=== PATIENT | female | born 1960 | race Caucasian/White ===

== ENCOUNTER → 2017-07-22 | Outpatient (CLI) | payer OTHER | LOC: CFH 10:33 | PROVIDERS: ATTEND Specialist | DX: Z12.31 Encounter for screening mammogram for malignant neoplasm of breast (principal) | CPT/HCPCS: G0202 ==

== ENCOUNTER → 2017-08-15 | Outpatient (CLI) | payer OTHER | END | disposition home or self-care (01) | LOC: RAD 08:20 | PROVIDERS: ATTEND Family Medicine | DX: M51.36 Other intervertebral disc degeneration, lumbar region (principal); M47.896 Other spondylosis, lumbar region; M48.061 Spinal stenosis, lumbar region without neurogenic claudication; M51.26 Other intervertebral disc displacement, lumbar region; M51.27 Other intervertebral disc displacement, lumbosacral region | CPT/HCPCS: 72148 ==

== ENCOUNTER 2017-09-06 12:37 | Inpatient (IN) | payer OTHER ==
[~2017-09-06] VITALS: Ht 160 cm; Wt 69.6 kg
[2017-09-06] MEDS ORDERED: SODIUM CHLORIDE FLUSH 10ML SYR IVF ONE (14:00)
[2017-09-06] MEDS ORDERED: ONDANSETRON 2MG/ML, 2ML IVPush ONE (14:00)
[2017-09-06] MEDS ORDERED: ONDANSETRON 2MG/ML, 2ML ONE (14:11)
[2017-09-06] MEDS ORDERED: HYDROmorphone 2 MG/ML, 1ML ONE ×3 (14:11→16:10)
[2017-09-06] MEDS: HYDROmorphone 2 MG/ML, 1ML IVPush PRN ×2 (14:16→15:18)
[2017-09-06 14:26] LABS: BASOPHILS # (AUTO) 0.01 x10^3/uL (0-0.1); BASOPHILS % (AUTO) 0 % (0-1); EOSINOPHILS # (AUTO) 0.03 x10^3/uL (0-0.4); EOSINOPHILS % (AUTO) 0 % (1-7); LYMPHOCYTES # (AUTO) 1.25 x10^3/uL (1-3.4); LYMPHOCYTES % (AUTO) 12 % (22-44); MD NO; MEAN CORPUSCULAR HEMOGLOBIN 29.3 pg (27.0-34.8); MEAN CORPUSCULAR HGB CONC 33.8 g/dL (32.4-35.8); MEAN CORPUSCULAR VOLUME 86.9 fL (80-100); MEAN PLATELET VOLUME 7.1 fL (7.4-10.4); MONOCYTES # (AUTO) 0.71 x10^3/uL (0.2-0.8); MONOCYTES % (AUTO) 7 % (2-9); NEUTROPHILS # (AUTO) 8.57 x10^3/uL (1.8-6.8); NEUTROPHILS % (AUTO) 81 % (42-75); PLATELET COUNT 718 x10^3/uL (130-400); RED BLOOD COUNT 3.57 x10^6/uL (3.82-5.3)
[2017-09-06 14:35] LABS: INTERNATIONAL NORMALIZED RATIO 1.02 (0.93-1.1); PROTHROMBIN TIME 10.5 Seconds (9.6-11.5)
[2017-09-06 14:43] LABS: ALANINE AMINOTRANSFERASE 14 U/L (12-78); ALBUMIN 2.7 g/dL (3.4-5.0); ANION GAP 7 mmol/L (5-15); CALCIUM 8.7 mg/dL (8.5-10.1); CHLORIDE 105 mmol/L (98-107); CREATININE 0.59 mg/dL (0.55-1.02)
[2017-09-06 14:45] LABS: ALKALINE PHOSPHATASE 93 U/L (45-117); BILIRUBIN,TOTAL 0.3 mg/dL (0.2-1.0); TOTAL PROTEIN 8.2 g/dL (6.4-8.2)
[2017-09-06] MEDS ORDERED: ROSU5TAB PO (14:48)
[2017-09-06 15:16] LABS: HCT (SEDRATE) 30.7 % (34.6-47.8)
[2017-09-06] MEDS ORDERED: LIDOCAINE 2%, 20ML ONE ×2 (15:16→17:14)
[2017-09-06] MEDS ORDERED: MIDAZOLAM 1 MG/ML, 5ML ONE (15:38)
[2017-09-06] MEDS ORDERED: FENTANYL PF 100 MCG/2ML ONE (15:38)
[2017-09-06] MEDS ORDERED: MIDAZOLAM 1 MG/ML, 2ML IVPush ONE (16:00)
[2017-09-06] MEDS ORDERED: FENTANYL PF 100 MCG/2ML IVPush ONE (16:00)
[2017-09-06] MEDS ORDERED: LIDOCAINE 1%, 10ML ONE (16:10)
[2017-09-06] MEDS ORDERED: PHARMACOKINETIC CONSULTATION MC ONE ×2 (16:30→20:00)
[2017-09-06] MEDS ORDERED: CEFTRIAXONE PMX 1GM/50ML 50 ML IV ONE (16:30)
[2017-09-06] MEDS ORDERED: VANCOMYCIN PER PHARMACY MC PRN ×2 (16:30→19:00)
[2017-09-06] MEDS ORDERED: HYDROmorphone 2 MG/ML, 1ML IVPush PRN (16:30)
[2017-09-06] MEDS ORDERED: VANCOMYCIN 1,400 MG in SODIUM CHLORIDE 0.9% 250 ML IV ONE (17:00)
[2017-09-06] MEDS ORDERED: OMNIPAQUE 300 MG/ML, 10ML VIAL ONE (17:10)
[2017-09-06] MEDS ORDERED: FENTANYL PF 100 MCG/2ML IVPush PRN (18:00)
[2017-09-06] MEDS: SODIUM CHLORIDE 0.9% 1,000 ML IV SCH (18:33)
[2017-09-06 19:00] LABS: SYN CELLS COUNTED 2
[2017-09-06] MEDS ORDERED: POLYETHYLENE GLYCOL 17 GM PACKET PO PRN (19:00)
[2017-09-06] MEDS ORDERED: BISACODYL 10 MG SUPP PR PRN (19:00)
[2017-09-06] MEDS ORDERED: PHARMACOKINETIC MONITORING MC PRN (20:00)
[2017-09-06] MEDS: morphine SULFATE 10 MG/ML, 1ML IVPush PRN (21:25)
[2017-09-06] MEDS: ONDANSETRON 2MG/ML, 2ML IVPush PRN (21:25)
[2017-09-06] MEDS ORDERED: DIPHENHYDRAMINE 50 MG/ML, 1ML IVPush PRN (21:30)
[2017-09-06] MEDS: PIPERACILLIN/TAZO/PMX 3.375GM 50 ML IV SCH (22:26)
[2017-09-06] MEDS: ATORVASTATIN 10 MG TABLET PO SCH (22:26)
[2017-09-06] MEDS: HEPARIN 5,000 UNITS/ML, 1ML SQ SCH (22:35)
[2017-09-07 00:34] VITALS: BP 108/61
[2017-09-07] MEDS: morphine SULFATE 10 MG/ML, 1ML IVPush PRN ×2 (02:34→07:21)
[2017-09-07] MEDS: HEPARIN 5,000 UNITS/ML, 1ML SQ SCH ×3 (03:00→18:27)
[2017-09-07] MEDS ORDERED: OMNIPAQUE 350 MG/ML, 100ML BOTTLE ONE (04:11)
[2017-09-07] MEDS: SODIUM CHLORIDE 0.9% 1,000 ML IV SCH ×2 (04:45→17:23)
[2017-09-07] MEDS: PIPERACILLIN/TAZO/PMX 3.375GM 50 ML IV SCH ×4 (04:45→23:46)
[2017-09-07] MEDS: ONDANSETRON 2MG/ML, 2ML IVPush PRN ×2 (04:54→11:05)
[2017-09-07] MEDS: KETOROLAC 30 MG/1 ML IVPush PRN ×4 (04:54→23:47)
[2017-09-07] MEDS ORDERED: ESTR0.5T PO (05:15)
[2017-09-07 05:21] LABS: BASOPHILS # (AUTO) 0.02 x10^3/uL (0-0.1); BASOPHILS % (AUTO) 0 % (0-1); EOSINOPHILS # (AUTO) 0.02 x10^3/uL (0-0.4); EOSINOPHILS % (AUTO) 0 % (1-7); LYMPHOCYTES # (AUTO) 0.94 x10^3/uL (1-3.4); LYMPHOCYTES % (AUTO) 10 % (22-44); MD NO; MEAN CORPUSCULAR HEMOGLOBIN 29.3 pg (27.0-34.8); MEAN CORPUSCULAR HGB CONC 33.6 g/dL (32.4-35.8); MEAN CORPUSCULAR VOLUME 87.2 fL (80-100); MEAN PLATELET VOLUME 6.9 fL (7.4-10.4); MONOCYTES # (AUTO) 0.66 x10^3/uL (0.2-0.8); MONOCYTES % (AUTO) 7 % (2-9); NEUTROPHILS % (AUTO) 82 % (42-75); PLATELET COUNT 513 x10^3/uL (130-400); RED BLOOD COUNT 2.87 x10^6/uL (3.82-5.3); RED CELL DISTRIBUTION WIDTH 14.3 % (9.6-15.2)
[2017-09-07 05:33] LABS: CHLORIDE 108 mmol/L (98-107)
[2017-09-07 05:51] LABS: ALANINE AMINOTRANSFERASE 13 U/L (12-78); ALBUMIN 2.1 g/dL (3.4-5.0); ALKALINE PHOSPHATASE 73 U/L (45-117); ANION GAP 8 mmol/L (5-15); BILIRUBIN,TOTAL 0.5 mg/dL (0.2-1.0); CALCIUM 8.3 mg/dL (8.5-10.1); CREATININE 0.46 mg/dL (0.55-1.02); TOTAL PROTEIN 6.5 g/dL (6.4-8.2)
[2017-09-07] MEDS: VANCOMYCIN 1,400 MG in SODIUM CHLORIDE 0.9% 250 ML IV SCH ×2 (07:21→18:25)
[2017-09-07 08:10] VITALS: BP 103/63
[2017-09-07] MEDS: SENNA/DOCUSATE TABLET PO SCH (09:00)
[2017-09-07] MEDS ORDERED: GADOBUTROL 7.5 MMOL/7.5 ML PFS ONE (10:01)
[2017-09-07 15:15] VITALS: BP 123/72
[2017-09-07 19:15] VITALS: BP 107/63
[2017-09-07] MEDS: ATORVASTATIN 10 MG TABLET PO SCH (21:04)
[2017-09-08 02:02] VITALS: BP 112/68
[2017-09-08] MEDS: HEPARIN 5,000 UNITS/ML, 1ML SQ SCH ×3 (02:41→18:50)
[2017-09-08 05:11] LABS: BASOPHILS # (AUTO) 0.01 x10^3/uL (0-0.1); BASOPHILS % (AUTO) 0 % (0-1); EOSINOPHILS # (AUTO) 0.08 x10^3/uL (0-0.4); EOSINOPHILS % (AUTO) 1 % (1-7); LYMPHOCYTES # (AUTO) 1.33 x10^3/uL (1-3.4); LYMPHOCYTES % (AUTO) 16 % (22-44); MD NO; MEAN CORPUSCULAR HEMOGLOBIN 29.4 pg (27.0-34.8); MEAN CORPUSCULAR HGB CONC 33.3 g/dL (32.4-35.8); MEAN CORPUSCULAR VOLUME 88.3 fL (80-100); MONOCYTES # (AUTO) 0.84 x10^3/uL (0.2-0.8); MONOCYTES % (AUTO) 10 % (2-9); NEUTROPHILS % (AUTO) 74 % (42-75); PLATELET COUNT 483 x10^3/uL (130-400); RED BLOOD COUNT 2.86 x10^6/uL (3.82-5.3); RED CELL DISTRIBUTION WIDTH 14.2 % (9.6-15.2)
[2017-09-08 05:22] LABS: ANION GAP 8 mmol/L (5-15); CHLORIDE 107 mmol/L (98-107)
[2017-09-08] MEDS: SODIUM CHLORIDE 0.9% 1,000 ML IV SCH ×2 (05:23→18:38)
[2017-09-08] MEDS: PIPERACILLIN/TAZO/PMX 3.375GM 50 ML IV SCH ×3 (05:23→19:44)
[2017-09-08 05:27] LABS: ALANINE AMINOTRANSFERASE 10 U/L (12-78); ALKALINE PHOSPHATASE 77 U/L (45-117); BILIRUBIN,TOTAL 0.3 mg/dL (0.2-1.0); CREATININE 0.99 mg/dL (0.55-1.02); TOTAL PROTEIN 6.3 g/dL (6.4-8.2)
[2017-09-08] MEDS: VANCOMYCIN 1,400 MG in SODIUM CHLORIDE 0.9% 250 ML IV SCH ×2 (06:07→21:39)
[2017-09-08] MEDS: KETOROLAC 30 MG/1 ML IVPush PRN ×3 (06:07→18:24)
[2017-09-08] MEDS: SENNA/DOCUSATE TABLET PO SCH (07:40)
[2017-09-08 07:56] VITALS: BP 123/70
[2017-09-08] MEDS: morphine SULFATE 10 MG/ML, 1ML IVPush PRN ×4 (07:56→23:10)
[2017-09-08] MEDS ORDERED: LIDOCAINE 2%, 20ML ONE (13:58)
[2017-09-08 15:45] VITALS: BP 118/70
[2017-09-08 17:00] LABS: HCT (SEDRATE) 25.4 % (34.6-47.8)
[2017-09-08] MEDS: ONDANSETRON 2MG/ML, 2ML IVPush PRN (17:18)
[2017-09-08 17:45] LABS: SEDIMENTATION RATE > 120 mm/hr (0-20)
[2017-09-08] MEDS: ACETAMINOPHEN 325 MG TABLET PO PRN ×2 (18:51→23:10)
[2017-09-08 20:14] VITALS: BP 118/70
[2017-09-08] MEDS: ATORVASTATIN 10 MG TABLET PO SCH (21:39)
[2017-09-09] MEDS: KETOROLAC 30 MG/1 ML IVPush PRN ×4 (00:15→18:14)
[2017-09-09] MEDS: PIPERACILLIN/TAZO/PMX 3.375GM 50 ML IV SCH ×4 (01:59→22:19)
[2017-09-09] MEDS: morphine SULFATE 10 MG/ML, 1ML IVPush PRN ×7 (02:04→22:19)
[2017-09-09 02:37] VITALS: BP 109/60
[2017-09-09] MEDS: HEPARIN 5,000 UNITS/ML, 1ML SQ SCH ×3 (03:00→17:50)
[2017-09-09] MEDS: SODIUM CHLORIDE 0.9% 1,000 ML IV SCH ×2 (04:10→12:20)
[2017-09-09 08:15] VITALS: BP 110/58
[2017-09-09] MEDS: ACETAMINOPHEN 325 MG TABLET PO PRN (08:25)
[2017-09-09] MEDS: SENNA/DOCUSATE TABLET PO SCH (08:25)
[2017-09-09 13:44] VITALS: BP 114/67
[2017-09-09] MEDS: VANCOMYCIN 1,400 MG in SODIUM CHLORIDE 0.9% 250 ML IV SCH (14:47)
[2017-09-09] MEDS ORDERED: FENTANYL PF 100 MCG/2ML ONE (19:04)
[2017-09-09] MEDS ORDERED: MIDAZOLAM 1 MG/ML, 2ML ONE (19:04)
[2017-09-09] MEDS ORDERED: PROPOFOL 10 MG/ML, 20ML ONE (19:05)
[2017-09-09] MEDS ORDERED: OXYcodone 5 MG/5 ML ORAL.SOL UDC PO PRN (20:30)
[2017-09-09] MEDS ORDERED: FENTANYL PF 100 MCG/2ML IV PRN (20:30)
[2017-09-09] MEDS ORDERED: LORazepam 2 MG/ML, 1ML IVPush PRN (20:30)
[2017-09-09] MEDS ORDERED: ONDANSETRON 2MG/ML, 2ML IVPush PRN (20:30)
[2017-09-09] MEDS ORDERED: PROMETHAZINE 25 MG/ML, 1ML IV PRN (20:30)
[2017-09-09] MEDS ORDERED: HYDROmorphone 1 MG/ML, 1ML IV PRN (20:30)
[2017-09-09] MEDS ORDERED: ALBUTEROL/IPRATROPIUM 2.5MG/0.5MG, 3 ML NPPB PRN (20:30)
[2017-09-09] MEDS ORDERED: DIAZEPAM 5 MG/ML, 2ML IVPush PRN (20:30)
[2017-09-09] MEDS ORDERED: MIDAZOLAM 1 MG/ML, 2ML IV PRN (20:30)
[2017-09-09] MEDS ORDERED: METOCLOPRAMIDE 5 MG/ML, 2ML IV PRN (20:30)
[2017-09-09] MEDS ORDERED: hydrALAzine 20 MG/ML, 1ML IV PRN (20:30)
[2017-09-09] MEDS ORDERED: LABETALOL 5MG/ML, 20ML IV PRN (20:30)
[2017-09-09 21:40] VITALS: BP 118/59
[2017-09-09] MEDS: ATORVASTATIN 10 MG TABLET PO SCH (22:39)
[2017-09-10 00:20] VITALS: BP 115/56
[2017-09-10] MEDS: KETOROLAC 30 MG/1 ML IVPush PRN ×4 (01:02→20:42)
[2017-09-10] MEDS: morphine SULFATE 10 MG/ML, 1ML IVPush PRN ×4 (01:12→10:52)
[2017-09-10] MEDS: HEPARIN 5,000 UNITS/ML, 1ML SQ SCH ×3 (02:40→18:33)
[2017-09-10 04:15] VITALS: BP 116/55
[2017-09-10] MEDS: PIPERACILLIN/TAZO/PMX 3.375GM 50 ML IV SCH ×4 (04:20→22:47)
[2017-09-10 07:19] VITALS: BP 121/65
[2017-09-10] MEDS: SENNA/DOCUSATE TABLET PO SCH (07:39)
[2017-09-10] MEDS: VANCOMYCIN 1,400 MG in SODIUM CHLORIDE 0.9% 250 ML IV SCH (09:43)
[2017-09-10] MEDS: HYDROcodone/APAP 5/325 TABLET PO PRN ×2 (13:23→20:12)
[2017-09-10 13:43] VITALS: BP 147/72
[2017-09-10] MEDS: SODIUM CHLORIDE 0.9% 1,000 ML IV SCH (16:10)
[2017-09-10] MEDS: ATORVASTATIN 10 MG TABLET PO SCH (20:42)
[2017-09-10 21:00] VITALS: BP 120/70
[2017-09-11] MEDS: HYDROcodone/APAP 5/325 TABLET PO PRN ×4 (02:36→23:28)
[2017-09-11 02:40] VITALS: BP 122/73
[2017-09-11] MEDS: KETOROLAC 30 MG/1 ML IVPush PRN ×3 (03:01→18:44)
[2017-09-11] MEDS: VANCOMYCIN 1,400 MG in SODIUM CHLORIDE 0.9% 250 ML IV SCH ×2 (03:01→22:00)
[2017-09-11] MEDS: SODIUM CHLORIDE 0.9% 1,000 ML IV SCH ×3 (03:01→20:17)
[2017-09-11] MEDS: PIPERACILLIN/TAZO/PMX 3.375GM 50 ML IV SCH ×4 (04:56→23:28)
[2017-09-11 07:15] VITALS: BP 117/72
[2017-09-11] MEDS: POLYETHYLENE GLYCOL 17 GM PACKET PO SCH (08:09)
[2017-09-11] MEDS: SENNA/DOCUSATE TABLET PO SCH (08:09)
[2017-09-11] MEDS: ONDANSETRON 2MG/ML, 2ML IVPush PRN (08:14)
[2017-09-11] MEDS ORDERED: VANCOMYCIN 1,000 MG ONE (12:04)
[2017-09-11] MEDS ORDERED: TRANEXAMIC ACID 100 MG/ML, 10ML ONE ×2 (12:09)
[2017-09-11] MEDS ORDERED: KETOROLAC 60 MG/2 ML ONE (12:09)
[2017-09-11] MEDS ORDERED: EPINEPHRINE 1 MG/ML, 1ML ONE (12:10)
[2017-09-11] MEDS ORDERED: ROPivacaine/PF 0.2%, 10 ML ONE (12:10)
[2017-09-11] MEDS ORDERED: ROPIvacaine/PF 0.2%, 20 ML ONE (12:10)
[2017-09-11] MEDS ORDERED: MIDAZOLAM 1 MG/ML, 2ML ONE (12:15)
[2017-09-11] MEDS ORDERED: FENTANYL PF 250 MCG/5ML ONE (12:15)
[2017-09-11] MEDS ORDERED: PROPOFOL 10 MG/ML, 20ML ONE (12:16)
[2017-09-11] MEDS ORDERED: ROCURONIUM 10 MG/ML,10ML ONE (12:16)
[2017-09-11] MEDS ORDERED: LIDOCAINE-MPF 2% ,5ML ONE (12:16)
[2017-09-11] MEDS ORDERED: ONDANSETRON 2MG/ML, 2ML ONE (12:29)
[2017-09-11] MEDS ORDERED: CEFAZOLIN 1,000 MG ONE (12:29)
[2017-09-11] MEDS ORDERED: KETAMINE 10 MG/ML, 20ML ONE (12:48)
[2017-09-11] MEDS ORDERED: MEPERIDINE/PF 25MG/0.5ML IVPush PRN (13:00)
[2017-09-11] MEDS ORDERED: DIAZEPAM 5 MG/ML, 2ML IVPush PRN (13:00)
[2017-09-11] MEDS ORDERED: OXYcodone 5 MG/5 ML ORAL.SOL UDC PO PRN (13:00)
[2017-09-11] MEDS ORDERED: ONDANSETRON 2MG/ML, 2ML IVPush PRN (13:00)
[2017-09-11] MEDS ORDERED: HYDROmorphone 1 MG/ML, 1ML IV PRN (13:00)
[2017-09-11] MEDS ORDERED: hydrALAzine 20 MG/ML, 1ML IV PRN (13:00)
[2017-09-11] MEDS ORDERED: LABETALOL 5MG/ML, 20ML IV PRN (13:00)
[2017-09-11] MEDS ORDERED: FENTANYL PF 100 MCG/2ML IV PRN (13:00)
[2017-09-11] MEDS ORDERED: ACETAMINOPHEN 325 MG TABLET PO PRN (13:00)
[2017-09-11] MEDS ORDERED: HYDROmorphone 2 MG/ML, 1ML ONE (13:24)
[2017-09-11] MEDS ORDERED: VANCOMYCIN 1,000 MG IVPB ONE (13:46)
[2017-09-11] MEDS ORDERED: PROMETHAZINE 25 MG/ML, 1ML ONE (14:40)
[2017-09-11] MEDS: PROMETHAZINE 25 MG/ML, 1ML IV PRN ×2 (14:41→15:11)
[2017-09-11] MEDS ORDERED: SCOPOLAMINE PATCH, 1.5MG PATCH.TD72 TD ONE ×2 (14:58→15:00)
[2017-09-11 18:30] VITALS: BP 130/69
[2017-09-11 20:15] VITALS: BP 118/68
[2017-09-11] MEDS: ATORVASTATIN 10 MG TABLET PO SCH (20:16)
[2017-09-11 20:32] LABS: CREATININE 0.68 mg/dL (0.55-1.02); VANCOMYCIN,TROUGH 11.7 mcg/mL (5.0-10.0)
[2017-09-11] MEDS ORDERED: VANCOMYCIN 1,400 MG in SODIUM CHLORIDE 0.9% 250 ML IV SCH (21:30)
[2017-09-11 23:35] VITALS: BP 124/58
[2017-09-12 04:34] VITALS: BP 119/67
[2017-09-12] MEDS: HYDROcodone/APAP 5/325 TABLET PO PRN ×3 (05:08→18:26)
[2017-09-12] MEDS: PIPERACILLIN/TAZO/PMX 3.375GM 50 ML IV SCH ×2 (05:08→12:20)
[2017-09-12 06:00] LABS: ALBUMIN 1.8 g/dL (3.4-5.0); ANION GAP 9 mmol/L (5-15); CALCIUM 7.4 mg/dL (8.5-10.1); CHLORIDE 105 mmol/L (98-107)
[2017-09-12 06:03] LABS: ALANINE AMINOTRANSFERASE 37 U/L (12-78); ALKALINE PHOSPHATASE 116 U/L (45-117); BILIRUBIN,TOTAL 0.6 mg/dL (0.2-1.0); CREATININE 0.68 mg/dL (0.55-1.02); TOTAL PROTEIN 5.7 g/dL (6.4-8.2)
[2017-09-12 06:13] LABS: MEAN CORPUSCULAR HEMOGLOBIN 29.3 pg (27.0-34.8); MEAN CORPUSCULAR HGB CONC 33.8 g/dL (32.4-35.8); MEAN CORPUSCULAR VOLUME 86.7 fL (80-100); MEAN PLATELET VOLUME 7.2 fL (7.4-10.4); PLATELET COUNT 380 x10^3/uL (130-400); RED BLOOD COUNT 2.53 x10^6/uL (3.82-5.3); RED CELL DISTRIBUTION WIDTH 13.9 % (9.6-15.2)
[2017-09-12 06:45] LABS: BASOPHILS # (AUTO) 0.02 x10^3/uL (0-0.1); BASOPHILS % (AUTO) 0 % (0-1); EOSINOPHILS # (AUTO) 0.03 x10^3/uL (0-0.4); EOSINOPHILS % (AUTO) 0 % (1-7); LYMPHOCYTES # (AUTO) 0.42 x10^3/uL (1-3.4); LYMPHOCYTES % (AUTO) 4 % (22-44); MD SCAN; MONOCYTES # (AUTO) 0.77 x10^3/uL (0.2-0.8); MONOCYTES % (AUTO) 7 % (2-9); NEUTROPHILS # (AUTO) 9.67 x10^3/uL (1.8-6.8); NEUTROPHILS % (AUTO) 89 % (42-75)
[2017-09-12 07:31] VITALS: BP 111/67
[2017-09-12] MEDS: POLYETHYLENE GLYCOL 17 GM PACKET PO SCH (07:49)
[2017-09-12] MEDS: SENNA/DOCUSATE TABLET PO SCH (07:49)
[2017-09-12] MEDS: SODIUM CHLORIDE 0.9% 1,000 ML IV SCH ×2 (09:14→20:58)
[2017-09-12] MEDS: VANCOMYCIN 1,400 MG in SODIUM CHLORIDE 0.9% 250 ML IV SCH (10:14)
[2017-09-12] MEDS: ENOXAPARIN 40 MG/0.4 ML SQ SCH (12:00)
[2017-09-12 12:30] VITALS: BP 134/76
[2017-09-12] MEDS: CEFAZOLIN PMX 2GM/50ML 50 ML IVPB SCH (16:15)
[2017-09-12] MEDS: ONDANSETRON 2MG/ML, 2ML IVPush PRN (17:17)
[2017-09-12] MEDS: ATORVASTATIN 10 MG TABLET PO SCH (20:59)
[2017-09-12 21:10] VITALS: BP 117/66
[2017-09-13] VITALS (13 sets, daily range): BP systolic 110–147; BP diastolic 58–81
[2017-09-13] MEDS: CEFAZOLIN PMX 2GM/50ML 50 ML IVPB SCH ×3 (00:19→18:47)
[2017-09-13] MEDS: HYDROcodone/APAP 5/325 TABLET PO PRN ×5 (00:24→22:50)
[2017-09-13 05:51] LABS: ALANINE AMINOTRANSFERASE 36 U/L (12-78); ALBUMIN 1.7 g/dL (3.4-5.0); ANION GAP 7 mmol/L (5-15); CALCIUM 7.6 mg/dL (8.5-10.1); CHLORIDE 106 mmol/L (98-107); CREATININE 0.71 mg/dL (0.55-1.02)
[2017-09-13 05:52] LABS: MEAN CORPUSCULAR HEMOGLOBIN 29.2 pg (27.0-34.8); MEAN CORPUSCULAR HGB CONC 33.2 g/dL (32.4-35.8); MEAN CORPUSCULAR VOLUME 87.9 fL (80-100); MEAN PLATELET VOLUME 7.6 fL (7.4-10.4); PLATELET COUNT 351 x10^3/uL (130-400); RED BLOOD COUNT 2.33 x10^6/uL (3.82-5.3); RED CELL DISTRIBUTION WIDTH 14.1 % (9.6-15.2)
[2017-09-13 05:54] LABS: ALKALINE PHOSPHATASE 98 U/L (45-117); BILIRUBIN,TOTAL 0.5 mg/dL (0.2-1.0); TOTAL PROTEIN 5.4 g/dL (6.4-8.2)
[2017-09-13 06:33] LABS: BASOPHILS # (AUTO) 0.02 x10^3/uL (0-0.1); BASOPHILS % (AUTO) 0 % (0-1); EOSINOPHILS # (AUTO) 0.04 x10^3/uL (0-0.4); EOSINOPHILS % (AUTO) 1 % (1-7); LYMPHOCYTES # (AUTO) 0.62 x10^3/uL (1-3.4); LYMPHOCYTES % (AUTO) 8 % (22-44); MD SCAN; MONOCYTES # (AUTO) 0.75 x10^3/uL (0.2-0.8); MONOCYTES % (AUTO) 10 % (2-9); NEUTROPHILS # (AUTO) 6.22 x10^3/uL (1.8-6.8); NEUTROPHILS % (AUTO) 81 % (42-75)
[2017-09-13] MEDS: SODIUM CHLORIDE 0.9% 1,000 ML IV SCH (06:44)
[2017-09-13] MEDS: POLYETHYLENE GLYCOL 17 GM PACKET PO SCH (08:24)
[2017-09-13] MEDS: SENNA/DOCUSATE TABLET PO SCH (08:25)
[2017-09-13] MEDS: ENOXAPARIN 40 MG/0.4 ML SQ SCH (12:00)
[2017-09-13] MEDS: POTASSIUM CHLORIDE 20 MEQ TAB.ER.PRT PO SCH ×2 (12:56→16:47)
[2017-09-13] MEDS: ATORVASTATIN 10 MG TABLET PO SCH (20:30)
[2017-09-14 02:05] VITALS: BP 125/79
[2017-09-14] MEDS: CEFAZOLIN PMX 2GM/50ML 50 ML IVPB SCH ×3 (03:31→19:45)
[2017-09-14 05:30] LABS: CHLORIDE 106 mmol/L (98-107)
[2017-09-14 05:46] LABS: BASOPHILS # (AUTO) 0.01 x10^3/uL (0-0.1); BASOPHILS % (AUTO) 0 % (0-1); EOSINOPHILS # (AUTO) 0.08 x10^3/uL (0-0.4); EOSINOPHILS % (AUTO) 1 % (1-7); LYMPHOCYTES # (AUTO) 0.88 x10^3/uL (1-3.4); LYMPHOCYTES % (AUTO) 13 % (22-44); MD NO; MEAN CORPUSCULAR HEMOGLOBIN 29.5 pg (27.0-34.8); MEAN CORPUSCULAR HGB CONC 33.6 g/dL (32.4-35.8); MEAN CORPUSCULAR VOLUME 87.7 fL (80-100); MEAN PLATELET VOLUME 7.4 fL (7.4-10.4); MONOCYTES # (AUTO) 1.02 x10^3/uL (0.2-0.8); MONOCYTES % (AUTO) 15 % (2-9); NEUTROPHILS # (AUTO) 5.03 x10^3/uL (1.8-6.8); NEUTROPHILS % (AUTO) 72 % (42-75); PLATELET COUNT 337 x10^3/uL (130-400); RED BLOOD COUNT 2.96 x10^6/uL (3.82-5.3); RED CELL DISTRIBUTION WIDTH 14.7 % (9.6-15.2)
[2017-09-14 05:48] LABS: ALANINE AMINOTRANSFERASE 32 U/L (12-78); ALBUMIN 1.8 g/dL (3.4-5.0); ALKALINE PHOSPHATASE 88 U/L (45-117); ANION GAP 5 mmol/L (5-15); BILIRUBIN,TOTAL 0.4 mg/dL (0.2-1.0); CALCIUM 7.9 mg/dL (8.5-10.1); CREATININE 0.74 mg/dL (0.55-1.02); TOTAL PROTEIN 5.6 g/dL (6.4-8.2)
[2017-09-14 05:52] LABS: SEDIMENTATION RATE 101 mm/hr (0-20)
[2017-09-14] MEDS: HYDROcodone/APAP 5/325 TABLET PO PRN ×3 (06:16→18:41)
[2017-09-14 07:20] VITALS: BP 125/72
[2017-09-14] MEDS: POLYETHYLENE GLYCOL 17 GM PACKET PO SCH (09:57)
[2017-09-14] MEDS: SENNA/DOCUSATE TABLET PO SCH (09:57)
[2017-09-14] MEDS: ENOXAPARIN 40 MG/0.4 ML SQ SCH (12:27)
[2017-09-14 13:07] VITALS: BP 124/70
[2017-09-14 20:33] VITALS: BP 117/73
[2017-09-14] MEDS: ATORVASTATIN 10 MG TABLET PO SCH (20:39)
[2017-09-15] MEDS: HYDROcodone/APAP 5/325 TABLET PO PRN ×3 (02:08→14:59)
[2017-09-15 02:21] VITALS: BP 121/69
[2017-09-15] MEDS: CEFAZOLIN PMX 2GM/50ML 50 ML IVPB SCH ×2 (03:59→12:57)
[2017-09-15 05:57] LABS: BASOPHILS # (AUTO) 0.04 x10^3/uL (0-0.1); BASOPHILS % (AUTO) 1 % (0-1); EOSINOPHILS # (AUTO) 0.06 x10^3/uL (0-0.4); EOSINOPHILS % (AUTO) 1 % (1-7); LYMPHOCYTES # (AUTO) 0.96 x10^3/uL (1-3.4); LYMPHOCYTES % (AUTO) 16 % (22-44); MD NO; MEAN CORPUSCULAR HEMOGLOBIN 29.6 pg (27.0-34.8); MEAN CORPUSCULAR HGB CONC 33.7 g/dL (32.4-35.8); MEAN CORPUSCULAR VOLUME 87.7 fL (80-100); MONOCYTES # (AUTO) 0.64 x10^3/uL (0.2-0.8); MONOCYTES % (AUTO) 11 % (2-9); NEUTROPHILS # (AUTO) 4.44 x10^3/uL (1.8-6.8); NEUTROPHILS % (AUTO) 72 % (42-75); PLATELET COUNT 352 x10^3/uL (130-400); RED BLOOD COUNT 3.02 x10^6/uL (3.82-5.3); RED CELL DISTRIBUTION WIDTH 14.9 % (9.6-15.2)
[2017-09-15 07:11] VITALS: BP 113/70
[2017-09-15] MEDS: POLYETHYLENE GLYCOL 17 GM PACKET PO SCH (10:01)
[2017-09-15] MEDS: SENNA/DOCUSATE TABLET PO SCH (10:01)
[2017-09-15 10:17] LABS: % IRON SATURATION 4 % (20-55); IRON LEVEL 7 mcg/dL (50-170); TOTAL IRON BINDING CAPACITY 163 mcg/dL (250-450)
[2017-09-15] MEDS: ENOXAPARIN 40 MG/0.4 ML SQ SCH (12:57)
[2017-09-15 13:39] LABS: OCCULT BLOOD NEGATIVE (NEGATIVE)
[2017-09-15 13:49] VITALS: BP 123/77
[2017-09-15] MEDS ORDERED: LACT1CAP24 PO (16:43)
[2017-09-15] MEDS ORDERED: POLY17PO5 PO (16:43)
[2017-09-15] MEDS ORDERED: KETO10TA PO (16:43)
[2017-09-15] MEDS ORDERED: CEFA2SYR4 IV (16:50)
[2017-09-15] MEDS ORDERED: MEROPENEM 1 GM in SODIUM CHLORIDE 0.9% 100 ML IV ONE (18:00)
== END 2017-09-15 20:20 | disposition home or self-care (01) | DRG 853 ==
LOC: ED 17:42 → EDIP 17:47 → ED 17:52 → 4NOR 18:55
PROVIDERS: ADMIT Family Medicine; ATTEND Family Medicine
PROC: 0S9B3ZZ Drainage of Left Hip Joint, Percutaneous Approach (ICD-10-PCS; 2017-09-09)
PROC: 0SUE09Z Supplement Left Hip Joint, Acetabular Surface with Liner, Open Approach (ICD-10-PCS; 2017-09-11)
PROC: 0QB70ZZ Excision of Left Upper Femur, Open Approach (ICD-10-PCS; 2017-09-11)
PROC: 0SUS09Z Supplement Left Hip Joint, Femoral Surface with Liner, Open Approach (ICD-10-PCS; 2017-09-11)
PROC: 0SH Lower Joints, Insertion (ICD-10-PCS; 2017-09-11)
PROC: 30233N1 Transfusion of Nonautologous Red Blood Cells into Peripheral Vein, Percutaneous Approach (ICD-10-PCS; principal; 2017-09-13)
PROC: 02HV33Z Insertion of Infusion Device into Superior Vena Cava, Percutaneous Approach (ICD-10-PCS; 2017-09-14)
PROC: B5181ZA Fluoroscopy of Superior Vena Cava using Low Osmolar Contrast, Guidance (ICD-10-PCS; 2017-09-14)
PROC: B548ZZA Ultrasonography of Superior Vena Cava, Guidance (ICD-10-PCS; 2017-09-14)
DX: A41.9 Sepsis, unspecified organism (principal); E43 Unspecified severe protein-calorie malnutrition; K68.12 Psoas muscle abscess; M00.052 Staphylococcal arthritis, left hip; M86.9 Osteomyelitis, unspecified; D62 Acute posthemorrhagic anemia; D64.9 Anemia, unspecified; E78.5 Hyperlipidemia, unspecified; B95.61 Methicillin susceptible Staphylococcus aureus infection as the cause of diseases classified elsewhere; E78.00 Pure hypercholesterolemia, unspecified; R26.2 Difficulty in walking, not elsewhere classified; R74.0 Nonspecific elevation of levels of transaminase and lactic acid dehydrogenase [LDH]; D47.3 Essential (hemorrhagic) thrombocythemia; M25.452 Effusion, left hip; Z53.29 Procedure and treatment not carried out because of patient's decision for other reasons; J45.909 Unspecified asthma, uncomplicated; E87.6 Hypokalemia; Z87.01 Personal history of pneumonia (recurrent); Z82.61 Family history of arthritis; Z87.442 Personal history of urinary calculi; Z90.710 Acquired absence of both cervix and uterus; Z99.3 Dependence on wheelchair; Z90.89 Acquired absence of other organs; Z72.89 Other problems related to lifestyle; Z86.11 Personal history of tuberculosis; Z88.3 Allergy status to other anti-infective agents; Z68.27 Body mass index [BMI] 27.0-27.9, adult; Z88.8 Allergy status to other drugs, medicaments and biological substances
CPT/HCPCS: 20611; 36415; 36569; 71010; 72170; 72193; 76000; 76937; 77001; 77002; 80053; 80202; 82272; 82565; 82945; 83540; 83550; 83605; 83615; 83735; 84100; 84145; 84157; 84520; 84560; 85025; 85610; 85651; 85730; 85810; 86140; 86480; 86703; 86803; 86850; 86900; 86923; 87040; 87070; 87075; 87077; 87176; 87186; 87205; 87899; 88300; 89050; 89060; 93005; 96374; 96375; 96376; A9585; C1713; J0171; J0690; J1170; J1644; J1650; J1885; J2185; J2250; J2405; J2543; J2550; J2704; J2795; J3010; J3370; J3490; Q9967; C1751; C1776; G0435; J2270; J7030; J7050; P9016

== ENCOUNTER → 2017-11-04 | Outpatient (CLI) | payer OTHER ==
[~2017-11-04] MED LIST: ASPI-496 PO; CEFA2SYR4 IV; CHOL10003 PO; CYAN25009 PO; ESTR0.5T PO; KETO10TA PO; LACT1CAP24 PO; LACT1CAP37 PO; LYSI500T3 PO; MULT-224 PO; POLY17PO5 PO; ROSU5TAB PO
[2017-11-04 13:58] LABS: MICROSCOPIC INDICATED
[2017-11-04 14:02] LABS: BASOPHILS # (AUTO) 0.03 x10^3/uL (0-0.1); BASOPHILS % (AUTO) 1 % (0-1); EOSINOPHILS # (AUTO) 0.08 x10^3/uL (0-0.4); EOSINOPHILS % (AUTO) 2 % (1-7); LYMPHOCYTES # (AUTO) 1.02 x10^3/uL (1-3.4); LYMPHOCYTES % (AUTO) 18 % (22-44); MD NO; MEAN CORPUSCULAR HEMOGLOBIN 29.5 pg (27.0-34.8); MEAN CORPUSCULAR HGB CONC 33.1 g/dL (32.4-35.8); MEAN PLATELET VOLUME 9.1 fL (7.4-10.4); MONOCYTES # (AUTO) 0.45 x10^3/uL (0.2-0.8); MONOCYTES % (AUTO) 8 % (2-9); NEUTROPHILS # (AUTO) 4.03 x10^3/uL (1.8-6.8); NEUTROPHILS % (AUTO) 72 % (42-75); PLATELET COUNT 225 x10^3/uL (130-400); RED CELL DISTRIBUTION WIDTH 15.6 % (9.6-15.2)
[2017-11-04 14:07] LABS: ALBUMIN 4.1 g/dL (3.4-5.0); ANION GAP 7 mmol/L (5-15); CALCIUM 8.7 mg/dL (8.5-10.1); CHLORIDE 106 mmol/L (98-107)
[2017-11-04 14:12] LABS: ALANINE AMINOTRANSFERASE 14 U/L (12-78); ALKALINE PHOSPHATASE 66 U/L (45-117); BILIRUBIN,TOTAL 0.4 mg/dL (0.2-1.0); CREATININE 0.83 mg/dL (0.55-1.02); TOTAL PROTEIN 7.6 g/dL (6.4-8.2)
[2017-11-04 14:30] LABS: CULTURE INDICATED? NO
== END ==
LOC: STAR 12:42
PROVIDERS: ATTEND Orthopaedic Surgery
DX: Z01.818 Encounter for other preprocedural examination (principal); M00.052 Staphylococcal arthritis, left hip; M25.552 Pain in left hip
CPT/HCPCS: 36415; 80053; 81001; 85025; 87081; 93005

== ENCOUNTER 2017-11-13 07:20 | Inpatient (IN) | payer OTHER ==
[~2017-11-13] VITALS: Ht 160 cm; Wt 71.0 kg
[2017-11-13] MEDS ORDERED: SCOPOLAMINE PATCH, 1.5MG PATCH.TD72 TD ONE ×2 (07:33→08:30)
[2017-11-13] MEDS ORDERED: VANCOMYCIN PER PHARMACY MC ONE ×2 (07:33→14:00)
[2017-11-13] MEDS ORDERED: LACTATED RINGERS 1,000 ML IV SCH (07:33)
[2017-11-13] MEDS ORDERED: GABAPENTIN 300 MG CAPSULE PO ONE (07:35)
[2017-11-13] MEDS ORDERED: OxyconTIN ER 10 MG TAB.ER PO ONE (07:35)
[2017-11-13] MEDS ORDERED: FENTANYL PF 250 MCG/5ML ONE (07:42)
[2017-11-13] MEDS ORDERED: MIDAZOLAM 1 MG/ML, 2ML ONE (07:42)
[2017-11-13] MEDS ORDERED: PROPOFOL 10 MG/ML, 20ML ONE (07:44)
[2017-11-13] MEDS ORDERED: SUCCINYLCHOLINE 20 MG/ML, 10ML ONE (07:44)
[2017-11-13] MEDS ORDERED: DEXAMETHASONE 4 MG/ML, 1ML ONE (07:44)
[2017-11-13] MEDS ORDERED: ONDANSETRON 2MG/ML, 2ML ONE (07:44)
[2017-11-13] MEDS ORDERED: CEFAZOLIN 1,000 MG ONE (07:44)
[2017-11-13] MEDS ORDERED: LIDOCAINE-MPF 2% ,5ML ONE (07:44)
[2017-11-13] MEDS ORDERED: LIDOCAINE GEL 2%, 5ML ONE (07:44)
[2017-11-13] MEDS ORDERED: VANCOMYCIN PER PHARMACY MC STA (07:49)
[2017-11-13 07:51] VITALS: BP 133/85
[2017-11-13] MEDS ORDERED: ACETAMINOPHEN 500 MG TABLET PO ONE (08:00)
[2017-11-13] MEDS ORDERED: METOCLOPRAMIDE 10MG TABLET PO PRN (08:00)
[2017-11-13] MEDS ORDERED: VANCOMYCIN PMX 1GM/200ML 200 ML IV ONE (08:00)
[2017-11-13] MEDS ORDERED: ROPIvacaine/PF 0.2%, 20 ML ONE (08:18)
[2017-11-13] MEDS ORDERED: KETOROLAC 60 MG/2 ML ONE (08:18)
[2017-11-13] MEDS ORDERED: TRANEXAMIC ACID 100 MG/ML, 10ML ONE ×2 (08:18)
[2017-11-13] MEDS ORDERED: SODIUM CHLORIDE 0.9% 100 ML ONE (08:19)
[2017-11-13] MEDS ORDERED: EPINEPHRINE 1 MG/ML, 1ML ONE (08:19)
[2017-11-13] MEDS ORDERED: VANCOMYCIN 1,000 MG ONE ×2 (08:19→11:59)
[2017-11-13] MEDS ORDERED: ROCURONIUM 10 MG/ML,10ML ONE (08:27)
[2017-11-13] MEDS ORDERED: HYDROcodone/APAP 5/325 TABLET PO PRN (08:30)
[2017-11-13] MEDS ORDERED: ZOLPIDEM 5MG TABLET PO PRN (08:30)
[2017-11-13] MEDS ORDERED: CEFAZOLIN PMX 2GM/50ML 50 ML IVPB SCH (08:30)
[2017-11-13] MEDS ORDERED: DIPHENHYDRAMINE 25 MG CAPSULE PO PRN (08:30)
[2017-11-13] MEDS ORDERED: MAGNESIUM HYDROXIDE 8%, 30ML UDC PO PRN (08:30)
[2017-11-13] MEDS ORDERED: SENNA/DOCUSATE TABLET PO PRN (08:30)
[2017-11-13] MEDS ORDERED: BISACODYL 10 MG SUPP PR PRN (08:30)
[2017-11-13] MEDS ORDERED: OXYcodone IR 5MG TABLET PO PRN (08:30)
[2017-11-13] MEDS ORDERED: ONDANSETRON 2MG/ML, 2ML IV PRN (08:30)
[2017-11-13] MEDS ORDERED: ONDANSETRON 4 MG TABLET PO PRN (08:30)
[2017-11-13] MEDS ORDERED: EPHEDRINE 50 MG/ML, 1ML ONE (08:54)
[2017-11-13] MEDS ORDERED: KETOROLAC 30 MG/1 ML ONE (08:55)
[2017-11-13] MEDS ORDERED: METOCLOPRAMIDE 5 MG/ML, 2ML ONE (08:55)
[2017-11-13] MEDS: DOCUSATE 100 MG CAPSULE PO SCH ×2 (09:00→20:18)
[2017-11-13] MEDS ORDERED: MIDAZOLAM 1 MG/ML, 2ML IV PRN (09:30)
[2017-11-13] MEDS ORDERED: LABETALOL 5MG/ML, 20ML IV PRN (09:30)
[2017-11-13] MEDS ORDERED: FENTANYL PF 100 MCG/2ML IV PRN (09:30)
[2017-11-13] MEDS ORDERED: PROMETHAZINE 25 MG/ML, 1ML IV PRN (09:30)
[2017-11-13] MEDS ORDERED: morphine SULFATE 10 MG/ML, 1ML IV PRN (09:30)
[2017-11-13] MEDS ORDERED: ONDANSETRON 2MG/ML, 2ML IVPush PRN (09:30)
[2017-11-13] MEDS ORDERED: ALBUTEROL/IPRATROPIUM 2.5MG/0.5MG, 3 ML NPPB PRN (09:30)
[2017-11-13] MEDS ORDERED: hydrALAzine 20 MG/ML, 1ML IV PRN (09:30)
[2017-11-13] MEDS ORDERED: HYDROcodone/APAP 7.5-325MG/15ML UDC PO PRN (09:30)
[2017-11-13] MEDS ORDERED: LORazepam 2 MG/ML, 1ML IVPush PRN (09:30)
[2017-11-13] MEDS ORDERED: OXYcodone 5 MG/5 ML ORAL.SOL UDC PO PRN (09:30)
[2017-11-13] MEDS ORDERED: MEPERIDINE/PF 25MG/0.5ML IVPush PRN (09:30)
[2017-11-13] MEDS ORDERED: DIAZEPAM 5 MG/ML, 2ML IVPush PRN (09:30)
[2017-11-13] MEDS ORDERED: PROMETHAZINE 25 MG/ML, 1ML ONE (10:34)
[2017-11-13] MEDS ORDERED: PHARMACOKINETIC CONSULTATION MC ONE (13:30)
[2017-11-13 13:59] VITALS: BP 100/61
[2017-11-13] MEDS ORDERED: VANCOMYCIN 1,400 MG in SODIUM CHLORIDE 0.9% 250 ML IV ONE (14:00)
[2017-11-13] MEDS: NS + 20MEQ KCL 1,000 ML IV SCH ×2 (16:33→20:34)
[2017-11-13] MEDS: CEFAZOLIN PMX 2GM/50ML 50 ML IVPB SCH (16:33)
[2017-11-13] MEDS: ASPIRIN 81 MG TABLET EC PO SCH (19:10)
[2017-11-13 19:50] VITALS: BP 90/56
[2017-11-13] MEDS: ATORVASTATIN 10 MG TABLET PO SCH (20:18)
[2017-11-13 23:57] VITALS: BP 92/55
[2017-11-14] MEDS: CEFAZOLIN PMX 2GM/50ML 50 ML IVPB SCH ×3 (00:04→17:06)
[2017-11-14] MEDS ORDERED: MELO7.5T31 PO ×2 (01:07→01:08)
[2017-11-14] MEDS ORDERED: ONDA4TAB7 PO (01:09)
[2017-11-14] MEDS ORDERED: OXYC-307 PO (01:10)
[2017-11-14] MEDS ORDERED: DOXY75TA PO (01:14)
[2017-11-14] MEDS ORDERED: TRAM50TA2 PO (01:16)
[2017-11-14 03:47] VITALS: BP 93/51
[2017-11-14] MEDS: NS + 20MEQ KCL 1,000 ML IV SCH ×2 (05:19→21:34)
[2017-11-14] MEDS ORDERED: DEXAMETHASONE 4 MG/ML, 1ML IVPush SCH (06:00)
[2017-11-14] MEDS: ASPIRIN 81 MG TABLET EC PO SCH ×2 (06:00→17:14)
[2017-11-14 07:46] VITALS: BP 106/57
[2017-11-14] MEDS: DOCUSATE 100 MG CAPSULE PO SCH ×2 (08:23→21:14)
[2017-11-14] MEDS: ACETAMINOPHEN 650 MG/20.3 ML UDC PO PRN ×3 (08:23→21:14)
[2017-11-14 13:07] VITALS: BP 103/55
[2017-11-14 18:41] VITALS: BP 96/56
[2017-11-14] MEDS: ATORVASTATIN 10 MG TABLET PO SCH (21:14)
[2017-11-15 00:33] VITALS: BP 92/55
[2017-11-15] MEDS: CEFAZOLIN PMX 2GM/50ML 50 ML IVPB SCH ×2 (00:33→08:45)
[2017-11-15] MEDS: ASPIRIN 81 MG TABLET EC PO SCH (06:33)
[2017-11-15] MEDS: ACETAMINOPHEN 650 MG/20.3 ML UDC PO PRN (06:45)
[2017-11-15] MEDS: NS + 20MEQ KCL 1,000 ML IV SCH (07:37)
[2017-11-15 07:49] VITALS: BP 107/64
[2017-11-15] MEDS: DOCUSATE 100 MG CAPSULE PO SCH (08:45)
[2017-11-15] MEDS ORDERED: OXYC5CAP2 PO (10:05)
[2017-11-15] MEDS ORDERED: ASPI-515 PO (10:17)
[2017-11-15 11:01] VITALS: BP 117/68
== END 2017-11-15 11:00 | disposition home or self-care (01) | DRG 468 ==
LOC: ORIP 07:20 → EDSTATUS 09:30 → 4NOR 12:16
PROVIDERS: ADMIT Orthopaedic Surgery; ATTEND Orthopaedic Surgery
PROC: 0SPB09Z Removal of Liner from Left Hip Joint, Open Approach (ICD-10-PCS; 2017-11-13)
PROC: 0SUE09Z Supplement Left Hip Joint, Acetabular Surface with Liner, Open Approach (ICD-10-PCS; 2017-11-13)
PROC: 0SPE0JZ Removal of Synthetic Substitute from Left Hip Joint, Acetabular Surface, Open Approach (ICD-10-PCS; 2017-11-13)
PROC: 0SRE0JZ Replacement of Left Hip Joint, Acetabular Surface with Synthetic Substitute, Open Approach (ICD-10-PCS; principal; 2017-11-13 09:30)
DX: M25.552 Pain in left hip (principal)
CPT/HCPCS: 36415; 72170; 82565; 84520; 85014; 85018; 86850; 86900; 87070; 87075; 87205; C1713; J0171; J0690; J1100; J1885; J2250; J2405; J2550; J2704; J2795; J3010; J3370; J3480; J3490; C1776; J0330; J2765

== ENCOUNTER → 2018-04-14 | Outpatient (CLI) | payer OTHER ==
[~2018-04-14] MED LIST changes: +ASPI-515 PO; +DOXY75TA PO; +LIDOCAINE-MPF 2%, 2ML ONE; +MELO7.5T31 PO; +ONDA4TAB7 PO; +OXYC-307 PO; +OXYC5CAP2 PO; +TRAM50TA2 PO
== END | disposition home or self-care (01) ==
LOC: RAD 08:57
PROVIDERS: ATTEND Family Medicine
DX: E05.20 Thyrotoxicosis with toxic multinodular goiter without thyrotoxic crisis or storm (principal)
CPT/HCPCS: 76942; 88173; J3490

== ENCOUNTER → 2018-06-08 | Outpatient (CLI) | payer OTHER | END | disposition home or self-care (01) | LOC: RAD 08:45 | PROVIDERS: ATTEND Family Medicine | DX: E04.1 Nontoxic single thyroid nodule (principal) | CPT/HCPCS: 76942; 88172; 88173; J3490 ==